=== PATIENT | female | born 1965 | race Hispanic/Latino ===

== ENCOUNTER 2021-02-05 16:13 | Emergency (ER) | payer SELFPAY ==
[2021-02-05] MEDS ORDERED: HYDROcodone/ACETAMINOPHEN 10-325MG TAB PO ONE (18:56)
--- NOTE | 2021-02-05 20:04 | XRay Report ---
LEFT ANKLE, 3 VIEWS INDICATION / CLINICAL INFORMATION: pain s/p direct blow. COMPARISON: None available. FINDINGS: No fracture or dislocation. Ankle mortise is intact. No significant soft tissue swelling. Incidental note is made of a very small plantar calcaneal spur. IMPRESSION: No evidence of fracture or dislocation involving the left ankle. LEFT FOOT, 3 VIEWS INDICATION / CLINICAL INFORMATION: pain s/p direct blow. COMPARISON: None available. FINDINGS: No fracture or dislocation involving the foot. There does appear to be some mild soft tissue swelling along the dorsal aspect of the midfoot. IMPRESSION: Mild dorsal soft tissue swelling but no visible fracture. Signer Name: Margarita Novak MD Signed: 02/05/2021 7:59 PM Workstation Name: [id number]
--- NOTE | 2021-02-05 20:50 | Emergency Department Report ---
ED Lower Extremity HPI - General Chief Complaint: Extremity Injury, Lower Stated Complaint: LT FOOT INJURY Time Seen by Provider: 02/05/21 18:56 Source: patient Mode of arrival: Ambulatory Limitations: No Limitations - History of Present Illness Initial Comments: This is a 55-year-old female nontoxic, well nourished in appearance, no acute signs of distress presents to the ED with c/o of left foot pain 1 days. Patient stated that she was walking her dog and believes she hit it against a rock. Patient denies any other injuries or trauma. Patient denies any numbness, tingling, fever, chills, nausea, vomiting, chest pain, shortness of breath, headache, stiff neck. Patient denies any joint swelling or joint redness. Patient denies decreased range of motion. Patient stated has decreased gait due to pain. Patient denies any allergies. MD Complaint: foot injury -: days(s) Injury: Foot: Left Place: street/outdoors Severity: mild Severity scale (0 -10): 8 Improves With: immobilization Worsens With: palpation Associated Symptoms: swelling, able to partially bear weight. denies: snap/pop sensation, numbness, tingling, unable to bear weight - Related Data Previous Rx's Medication Instructions Recorded Last Taken Type Naproxen 500 mg PO Q12H PRN #12 tablet 02/05/21 Unknown Rx Allergies Allergy/AdvReac Type Severity Reaction Status Date / Time No Known Allergies Allergy Unverified 02/05/21 18:08 ED Review of Systems ROS: Stated complaint: LT FOOT INJURY Other details as noted in HPI Comment: All other systems reviewed and negative Constitutional: denies: chills, fever Eyes: denies: eye pain, eye discharge, vision change ENT: denies: ear pain, throat pain Respiratory: denies: cough, shortness of breath, wheezing Cardiovascular: denies: chest pain, palpitations Endocrine: no symptoms reported Gastrointestinal: denies: abdominal pain, nausea, diarrhea Genitourinary: denies: urgency, dysuria, discharge Musculoskeletal: denies: back pain, joint swelling, arthralgia Skin: denies: rash, lesions Neurological: denies: headache, weakness, paresthesias Psychiatric: denies: anxiety, depression Hematological/Lymphatic: denies: easy bleeding, easy bruising ED Past Medical Hx - Medications Home Medications: Home Medications Medication Instructions Recorded Confirmed Last Taken Type Naproxen 500 mg PO Q12H PRN #12 tablet 02/05/21 Unknown Rx ED Physical Exam - General Limitations: No Limitations General appearance: alert, in no apparent distress - Head Head exam: Present: atraumatic, normocephalic - Eye Eye exam: Present: normal appearance - Neck Neck exam: Present: normal inspection, full ROM. Absent: lymphadenopathy - Respiratory Respiratory exam: Absent: respiratory distress - Cardiovascular Cardiovascular Exam: Present: regular rate - Extremities Exam Extremities exam: Present: full ROM, tenderness, normal capillary refill. Absent: joint swelling - Expanded Lower Extremity Exam Left Hip exam: Present: normal inspection, full ROM. Absent: tenderness, swelling Upper Leg exam: Present: normal inspection, full ROM. Absent: tenderness, swelling Knee exam: Present: normal inspection, full ROM. Absent: tenderness, swelling Lower Leg exam: Present: normal inspection, full ROM. Absent: tenderness, swelling Ankle exam: Present: normal inspection, full ROM. Absent: tenderness, swelling, abrasion, laceration, ecchymosis, deformity, crepidus, dislocation, erythema, anterior draw sign Foot/Toe exam: Present: full ROM, tenderness, swelling, ecchymosis. Absent: abrasion, laceration, deformity, crepidus, dislocation, erythema, amputation, puncture wound, foreign body, calcaneal tenderness, tenderness at base of 5th metatarsal, nail avulsion, subungual hematoma Neuro vascular tendon exam: Present: no vascular compromise Gait: Positive: observed and limited by pain 1 - pain and swelling here - Back Exam Back exam: Present: full ROM - Neurological Exam Neurological exam: Present: alert, oriented X3 - Psychiatric Psychiatric exam: Present: normal affect, normal mood - Skin Skin exam: Present: warm, dry, intact, normal color. Absent: rash - Other Other exam information: Negative Mayes test. ED Course Vital Signs 02/05/21 02/05/21 18:01 21:23 Temperature 98.7 F Pulse Rate 89 81 Respiratory 16 17 Rate Blood Pressure 145/72 [Left] O2 Sat by Pulse 98 99 Oximetry - Reevaluation(s) Reevaluation #1: 02/05/21 20:54 Patient is speaking in full sentences with no signs of distress noted. ED Lower Extremity MDM - Radiology Data [address] [address] XRay Report Signed Patient: BRANDON SIFUENTES MR#: [id number] : 1965 Acct:[id number] Age/Sex: 55 / F ADM Date: 02/05/21 Loc: ED Attending Dr: Ordering Physician: JULIUS MARTINEZ NP Date of Service: 02/05/21 Procedure(s): XR foot 3+V LT Accession Number(s): [id number] cc: JULIUS MARTINEZ NP Fluoro Time In Minutes: LEFT ANKLE, 3 VIEWS INDICATION / CLINICAL INFORMATION: pain s/p direct blow. COMPARISON: None available. FINDINGS: No fracture or dislocation. Ankle mortise is intact. No significant soft tissue swelling. Incidental note is made of a very small plantar calcaneal spur. IMPRESSION: No evidence of fracture or dislocation involving the left ankle. LEFT FOOT, 3 VIEWS INDICATION / CLINICAL INFORMATION: pain s/p direct blow. COMPARISON: None available. FINDINGS: No fracture or dislocation involving the foot. There does appear to be some mild soft tissue swelling along the dorsal aspect of the midfoot. IMPRESSION: Mild dorsal soft tissue swelling but no visible fracture. Signer Name: Margarita Novak MD Signed: 02/05/2021 7:59 PM Workstation Name: [id number] Transcribed By: JR Dictated By: Margarita Novak MD Electronically Authenticated By: Margarita Novak MD Signed Date/Time: 02/05/211958 DD/ 56 TD/TT: [address] [address] XRay Report Signed Patient: BRANDON SIFUENTES MR#: [id number] : 1965 Acct:[id number] Age/Sex: 55 / F ADM Date: 02/05/21 Loc: ED Attending Dr: Ordering Physician: JULIUS MARTINEZ NP Date of Service: 02/05/21 Procedure(s): XR ankle 3+V LT Accession Number(s): [id number] cc: JULIUS MARTINEZ NP Fluoro Time In Minutes: LEFT ANKLE, 3 VIEWS INDICATION / CLINICAL INFORMATION: pain s/p direct blow. COMPARISON: None available. FINDINGS: No fracture or dislocation. Ankle mortise is intact. No significant soft tissue swelling. Incidental note is made of a very small plantar calcaneal spur. IMPRESSION: No evidence of fracture or dislocation involving the left ankle. LEFT FOOT, 3 VIEWS INDICATION / CLINICAL INFORMATION: pain s/p direct blow. COMPARISON: None available. FINDINGS: No fracture or dislocation involving the foot. There does appear to be some mild soft tissue swelling along the dorsal aspect of the midfoot. IMPRESSION: Mild dorsal soft tissue swelling but no visible fracture. Signer Name: Margarita Novak MD Signed: 02/05/2021 7:59 PM Workstation Name: [id number] Transcribed By: Dictated By: Margarita Novak MD Electronically Authenticated By: Margarita Novak MD Signed Date/Time: 02/05/211958 DD/ 56 TD/TT: - Medical Decision Making This is a 55-year-old female that presents with left foot strain. Patient is stable and was examined by me. I referred patient to an orthopedic doctor for further evaluation for possible MRI. X-ray has been obtained and dictated by the radiologist. Patient is notified of the x-ray report with noted by the patient. Patient received a postop shoe and crutches. Patient was educated by her not to use crutches. Patient was instructed to RICE therapy. Patient received Jal for pain which stated patient symptoms improved and subsided. Patient stated Daughter will drive the patient home after discharge. Patient is discharged with Naproxen. At time of discharge, the patient does not seem toxic or ill in appearance. No acute signs of distress noted. Patient agrees to discharge treatment plan of care. No further questions noted by the patient. Critical care attestation.: If time is entered above; I have spent that time in minutes in the direct care of this critically ill patient, excluding procedure time. ED Disposition Clinical Impression: Strain of left foot Qualifiers: Encounter type: initial encounter Qualified Code(s): S96.912A - Strain of unspecified muscle and tendon at ankle and foot level, left foot, initial encounter Disposition: TO HOME OR SELFCARE Is pt being admited?: No Does the pt Need Aspirin: No Condition: Stable Instructions: Crutch Use, Adult, [id number], RICE Therapy for Routine Care of Injuries, [id number], Ankle Sprain, Crutch Use, Adult Additional Instructions: Follow-up with a orthopedic doctor in 3-5 days or if symptoms worsen and tere nue return to emergency room as soon as possible. No physical activity that extremity until cleared by orthopedic doctor Prescriptions: Naproxen 500 mg PO Q12H PRN #12 tablet PRN Reason: Pain , Severe (7-10) Referrals: PRIMARY CARE, [Primary Care Provider] - 3-5 Days NONI DAMON MD [Staff Physician] - 3-5 Days Forms: Work/School Release Form(ED) Time of Disposition: 21:10
[2021-02-05 21:54] VITALS: BP 145/72
== END 2021-02-05 21:23 | disposition home or self-care (01) ==
LOC: ED 16:13
DX: S96.912A Strain of unspecified muscle and tendon at ankle and foot level, left foot, initial encounter (principal); W22.8XXA Striking against or struck by other objects, initial encounter; Y93.89 Activity, other specified; Y92.89 Other specified places as the place of occurrence of the external cause; Y99.8 Other external cause status
CPT/HCPCS: 99283